=== PATIENT | female | born 1950 ===

== ENCOUNTER 2017-08-17 13:25 | Inpatient (IN) | payer OTHER ==
[~2017-08-17] VITALS: Ht 152.4 cm; Wt 90.7 kg
== END 2017-09-02 11:14 | disposition home or self-care (01) | DRG 743 ==
LOC: OB/GYN 08-31 06:00 → O/R 08-31 06:00 → SURH 08-31 08:30 → OB/GYN 08-31 11:43
PROVIDERS: Obstetrics & Gynecology Gynecologic Oncology
PROC: 0UT70ZZ Resection of Bilateral Fallopian Tubes, Open Approach (ICD-10-PCS; 2017-08-31)
PROC: 0DBW0ZZ Excision of Peritoneum, Open Approach (ICD-10-PCS; 2017-08-31)
PROC: 0UT20ZZ Resection of Bilateral Ovaries, Open Approach (ICD-10-PCS; 2017-08-31)
PROC: 0DNW0ZZ Release Peritoneum, Open Approach (ICD-10-PCS; 2017-08-31)
PROC: 0UT90ZZ Resection of Uterus, Open Approach (ICD-10-PCS; principal; 2017-08-31 08:30)
DX: D25.1 Intramural leiomyoma of uterus (principal); D27.1 Benign neoplasm of left ovary; D27.0 Benign neoplasm of right ovary; N72 Inflammatory disease of cervix uteri; N80.0 Endometriosis of uterus; N84.0 Polyp of corpus uteri